=== PATIENT | female | born 1985 | race Caucasian/White ===

== ENCOUNTER 2023-10-23 16:31 | Inpatient (IN) | payer OTHER, SELFPAY ==
[2023-10-23] VITALS (27 sets, daily range): BP systolic 83–131; BP diastolic 52–86; BMI 33.1
[2023-10-23] MEDS: NSS 1000 IV ×3 (14:25→17:39)
[2023-10-23] MEDS: ADRENALIN 0.299999999999999989 MG IM (14:27)
[2023-10-23] MEDS: DUONEB 3 ML INH ×2 (14:30→19:27)
--- NOTE | 2023-10-23 14:35 | ED.GENMED ---
History of Present Illness
<Khang Silverio Jr., PA-C - Last Filed: 10/23/23 15:49>
General
Chief Complaint: Allergic Reaction
Source: patient and spouse
Exam Limitations: none
Time Seen by Provider: 10/23/23 14:22
Nursing documentation reviewed up to this point in time: agreed with
Travel History
Have you had any contact with someone who has COVID-19?: No
Do you have any symptoms of coronavirus? Fever > 100 degrees, chills, cough, shortness of breath, sore throat, loss of taste or smell, muscle aches, or headache?: No
History of Present Illness
History of Present Illness:
38-year-old female past medical history of asthma previous gastric bypass migraines presenting to the emergency department today with abrupt onset of diffuse itchy rash tongue swelling trouble swallowing wheezing and lightheadedness that occurred at
home after eating a meal that included shrimp and fruit. She took 2 doses of epinephrine prednisone, Benadryl and famotidine had ongoing symptoms for 10 minutes took a second dose of epinephrine and quickly came to the emergency department. She
claims that symptoms are ongoing here but slightly improved she has been able to tolerate by mouth. She claims that the wheezing has improved she did use a nebulizer as well.
Review of Systems
<Khang Silverio Jr., PA-C - Last Filed: 10/23/23 15:49>
Review of Systems
Allergies reviewed?: Yes
All Other Systems: ROS reviewed and negative except as documented in HPI and ROS
Phy Exam
<JOSE E Ferris Jr. Last Filed: 10/23/23 15:49>
Physical Exam
Physical Exam:
GENERAL: Alert , in no apparent distress
EYE: pupils equal and reactive
NECK: Supple, no significant adenopathy.
ENT: Swollen tongue posterior pharynx is patent uvula midline o/p clr, mmm.
CARDIAC: Regular rate and rhythm .
LUNGS: Clear breath sounds bilaterally, no acute respiratory distress, no wheezes/rales/rhonchi
ABDOMEN: Soft, without focal tenderness, no r/g, no cvat
NEUROLOGICAL: Alert and oriented, no focal neuro deficits
SKIN: Warm and dry, skin intact.
MUSCULOSKELETAL: No edema, well perfused.
PSYCH: Normal and appropriate interaction.
Course
<Khang Silverio Jr., PA-C - Last Filed: 10/23/23 15:49>
Orders/Labs/Results
Orders:
Orders
10/23/23 14:21
EPINEPHrine PF [Adrenalin] 1 mg .ROUTE .STK-MED ONE
10/23/23 14:23
0.9% Sodium Chloride 1000 ml [Nss] 1,000 ml IV BOLUS
Ipratropium/Albuterol Sulfate [Duoneb] 3 ml INH R NOW ONE
10/23/23 14:25
EPINEPHrine 4 mg/250 mL NSS [Adrenalin] 4 mg in 250 ml .ROUTE .STK-MED
10/23/23 14:27
EPINEPHrine PF [Adrenalin] 0.3 mg IM NOW STA
Ipratropium/Albuterol Sulfate [Duoneb] 3 ml .ROUTE .STK-MED ONE
10/23/23 14:30
EPINEPHrine 4 mg/250 mL NSS [Adrenalin] 4 mg in 250 ml IV PER PROTOCOL
Initial dose in mcg/min, then titrate:: 2
Titrate to keep:: Other
Titrate to keep other:: symptoms
Titrate by mcg/min:: 0.5-1 mcg/min
Frequency of titrations (minutes):: 5
Maximum dose in mcg/min:: 10
Begin to taper infusion when:: Remained at goal for 4hrs
Taper by mcg/min:: 0.5-1 mcg/min
Frequency of taper (minutes) if patient maintains goal:: 30
Taper to off?: Yes
If infusion off & no longer maintaining goal:: Contact Provider
10/23/23 15:05
Test Result ONCE
10/23/23 15:10
CBC/With Diff [Complete Blood Count/With Diff] Urgent
10/23/23 15:43
Comprehensive Metabolic Panel Urgent
HCG, Serum Qualitative Screen Urgent
10/23/23 16:08
Admit/Transfer Patient As Directed
Co-Sign Provider:
Level of Care: Inpatient admission
Assign to:: ICU
Physician / Group: wallace/hospitalist
Diagnosis: anaphylaxis shock
Reason for Hospitalization: anaphylaxis shock
Expected length of stay greater than two midnights?: Yes
ELOS- Estimated Length of Stay in days: 3
I certify the patient meets the requirements for IP care: Yes
10/23/23 16:10
Code Status As Directed
Resuscitation Status: Full Code
10/23/23 16:14
0.9% Sodium Chloride 1000 ml [Nss] 1,000 ml IV BOLUS
10/23/23 16:15
Level Vial Setter Consult Routine
Consulting Provider: Jose Gilbert
Was physician already notified: Yes
Reason for consult: anaphylaxis shock
10/23/23 16:23
CR Chest - 2 Views Routine
Comment:
Reason For Exam: sob. wheezing. +anaphylaxis
Abnormal Lab Results
10/23/23 10/23/23
15:10 15:43
Plt Count 657 H 10^3/uL
(130-400)
MPV 10.7 H fL
(7.4-10.4)
Absolute Lymphs (auto) 3.9 H 10^3/uL
(1.2-3.4)
Neutrophils % 32.0 L %
(42.2-75.2)
Lymphocytes % 61.6 H %
(20.5-51.1)
Glucose 104 H mg/dl
(70-99)
10/23/23 15:10
10/23/23 15:43
Vital Signs
Initial and Last Documented VS:
Initial Vital Signs
Temp Pulse Resp BP Pulse Ox
98.1 F 123 22 83/52 97
10/23/23 14:17 10/23/23 14:17 10/23/23 14:17 10/23/23 14:17 10/23/23 14:17
Last Documented Vital Signs
Temp Pulse Resp BP Pulse Ox
98.1 F 90 22 108/71 98
10/23/23 14:17 10/23/23 15:15 10/23/23 15:15 10/23/23 15:00 10/23/23 15:15
<Lamine Davies DO - Last Filed: 10/23/23 16:26>
Orders/Labs/Results
Orders:
Orders
10/23/23 14:21
EPINEPHrine PF [Adrenalin] 1 mg .ROUTE .STK-MED ONE
10/23/23 14:23
0.9% Sodium Chloride 1000 ml [Nss] 1,000 ml IV BOLUS
Ipratropium/Albuterol Sulfate [Duoneb] 3 ml INH R NOW ONE
10/23/23 14:25
EPINEPHrine 4 mg/250 mL NSS [Adrenalin] 4 mg in 250 ml .ROUTE .STK-MED
10/23/23 14:27
EPINEPHrine PF [Adrenalin] 0.3 mg IM NOW STA
Ipratropium/Albuterol Sulfate [Duoneb] 3 ml .ROUTE .STK-MED ONE
10/23/23 14:30
EPINEPHrine 4 mg/250 mL NSS [Adrenalin] 4 mg in 250 ml IV PER PROTOCOL
Initial dose in mcg/min, then titrate:: 2
Titrate to keep:: Other
Titrate to keep other:: symptoms
Titrate by mcg/min:: 0.5-1 mcg/min
Frequency of titrations (minutes):: 5
Maximum dose in mcg/min:: 10
Begin to taper infusion when:: Remained at goal for 4hrs
Taper by mcg/min:: 0.5-1 mcg/min
Frequency of taper (minutes) if patient maintains goal:: 30
Taper to off?: Yes
If infusion off & no longer maintaining goal:: Contact Provider
10/23/23 15:05
Test Result ONCE
10/23/23 15:10
CBC/With Diff [Complete Blood Count/With Diff] Urgent
10/23/23 15:43
Comprehensive Metabolic Panel Urgent
HCG, Serum Qualitative Screen Urgent
10/23/23 16:08
Admit/Transfer Patient As Directed
Co-Sign Provider:
Level of Care: Inpatient admission
Assign to:: ICU
Physician / Group: rivka/hospitalist
Diagnosis: anaphylaxis shock
Reason for Hospitalization: anaphylaxis shock
Expected length of stay greater than two midnights?: Yes
ELOS- Estimated Length of Stay in days: 3
I certify the patient meets the requirements for IP care: Yes
10/23/23 16:10
Code Status As Directed
Resuscitation Status: Full Code
10/23/23 16:14
0.9% Sodium Chloride 1000 ml [Nss] 1,000 ml IV BOLUS
10/23/23 16:15
Level Vial Setter Consult Routine
Consulting Provider: Jose Gilbert
Was physician already notified: Yes
Reason for consult: anaphylaxis shock
10/23/23 16:23
CR Chest - 2 Views Routine
Comment:
Reason For Exam: sob. wheezing. +anaphylaxis
Abnormal Lab Results
10/23/23 10/23/23
15:10 15:43
Plt Count 657 H 10^3/uL
(130-400)
MPV 10.7 H fL
(7.4-10.4)
Absolute Lymphs (auto) 3.9 H 10^3/uL
(1.2-3.4)
Neutrophils % 32.0 L %
(42.2-75.2)
Lymphocytes % 61.6 H %
(20.5-51.1)
Glucose 104 H mg/dl
(70-99)
10/23/23 15:10
10/23/23 15:43
Vital Signs
Initial and Last Documented VS:
Initial Vital Signs
Temp Pulse Resp BP Pulse Ox
98.1 F 123 22 83/52 97
10/23/23 14:17 10/23/23 14:17 10/23/23 14:17 10/23/23 14:17 10/23/23 14:17
Last Documented Vital Signs
Temp Pulse Resp BP Pulse Ox
98.1 F 90 22 108/71 98
10/23/23 14:17 10/23/23 15:15 10/23/23 15:15 10/23/23 15:00 10/23/23 15:15
<Khang Silverio Jr., PA-C - Last Filed: 10/23/23 15:49>
MDM/Problems Addressed
MDM/Problems Addressed:
38-year-old female presenting to the emergency department today with concerns of diffuse rash trouble swallowing wheezing lightheadedness after a meal half an hour prior to arrival. She is since taken to EpiPen doses, Benadryl prednisone and
Pepcid. She still has ongoing symptoms. Here her tongue is swollen but her posterior pharynx is open lungs with very slight expiratory wheeze initial blood pressure slightly low but in normal range after a dose of epinephrine here. Given second
dose of epinephrine here patient still with ongoing symptoms patient was started on epinephrine drip and had very slight and gradual improvement here. Blood pressure remaining in the low 100s systolic. Plan to admit for further monitoring
considering ongoing symptoms.
<Khang Silverio Jr., PA-C - Last Filed: 10/23/23 15:49>
*Critical Care Note
Total Time (30-74mins, 75-104mins- exclusive of procedures): Not Applicable
ED Attending Note
<Khang Silverio Jr., PA-C - Last Filed: 10/23/23 15:49>
-
Portions of this chart may have been created with voice recognition software.� Occasional wrong word or��sound alike� substitutions may have occurred due to the inherent limitations of voice recognition software.
<Lamine Davies DO - Last Filed: 10/23/23 16:26>
ED Attending Note
Patient seen and examined by attending physician: Yes
I performed the substantive portion of visit, reviewed & personally made and approve the management plan that is documented in note by myself or ANDER.: Yes
ED Attending Note:
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 Started a few minutes after eating fruit. Patient did had epinephrine self-administered prior to the emergency department patient is diffusely red and pruritic.
Patient feels her tongue is swollen and has difficulty swallowing and is wheezing. Patient was given epinephrine famotidine and Benadryl as well as steroids. Patient feeling better now. Patient is no longer wheezing. Voice is clear. Oropharynx
clear. Heart is regular. No cyanosis. Much less erythema of the skin. Anticipate observation and possible further epinephrine but anticipate the patient being able to be discharged.
Patient seem to worsen and requiring more epi. In light of this we will admit the patient.
Discharge Plan
Departure
Patient Disposition: Admit
Date of Disposition: 10/23/23
Time of Disposition: 15:49
Admit to: ICU
Admit to doctor: Rivka
Presentation/result/management discussed w/ accepting MD/DO: Hospitalist
Patient with high blood pressure during this ER visit?: No
Condition: Good
Covid-19: Not Applicable
Discharge Problem:
Anaphylaxis
Prescriptions:
No Action
metformin 500 mg tablet
1,000 mg PO BID@0800,1700
clonazepam 1 mg tablet
1 mg PO HSPRN PRN (Reason: anxiety/sleep)
Theragran Tablet
1 tab PO DAILY
bupropion HCl 100 mg tablet sustained-release 12 hr
200 mg PO DAILY
bupropion HCl 100 mg tablet sustained-release 12 hr
100 mg PO HS
Rx Instructions:
with the 75 mg dose
ondansetron 8 mg Tablet,Disintegrating
8 mg PO Q8HPRN PRN (Reason: nausea)
temazepam 30 mg capsule
30 mg PO HSPRN PRN (Reason: insomnia)
bupropion HCl 75 mg tablet
75 mg PO HS
Rx Instructions:
with 100 mg
aspirin 81 mg Tablet,Chewable
81 mg PO DAILY
albuterol sulfate 90 mcg/actuation Hfa Aerosol Inhaler
2 puff INHALATION Q6H PRN (Reason: shortness of breath)
atenolol 50 mg Tablet
50 mg PO BID
loratadine [Claritin] 10 mg Tablet
10 mg PO DAILY
vitamin B complex [B Complex] Capsule
1 cap PO DAILY
aripiprazole 10 mg tablet
10 mg PO DAILY
Wegovy 0.5 mg/0.5 mL pen injector
0.5 mg SC MO
epinephrine 0.3 mg/0.3 mL auto-injector
0.3 mg IM PRN PRN (Reason: anaphylaxis)
Referrals:
Nancie Abraham DO [Family Provider] -
Interventions
Interventions:
*Risk Screen - Suicide Last Done: 10/23/23 14:17
*General Assessment Last Done: 10/23/23 14:17
*Neglect/Abuse Screening Last Done: 10/23/23 14:17
ED- Fall Risk Assessment Last Done: 10/23/23 14:17
ED- Cardiac Assessment Last Done: 10/23/23 14:17
ED- Pulmonary Assessment Last Done: 10/23/23 14:17
ED-Skin Assessment Last Done: 10/23/23 14:17
Discharge Date and Time
Print Language: SWAZI
[2023-10-23] MEDS: ADRENALIN 250 IV (15:07)
[2023-10-23 15:20] LABS: % Basophils 0.2 % (0-2); % Eosinophils 0.9 % (0-6); % Immature Granulocytes 0.3 % (0-0.5); % Lymphocytes 61.6 % (20.5-51.1); Absolute Eosinophils 0.1 10^3/uL (0-0.7); Absolute Lymphocytes 3.9 10^3/uL (1.2-3.4); Absolute Monocytes 0.3 10^3/uL (0.1-0.6); Hematocrit 45.4 % (37.0-47.0); Hemoglobin 15.5 g/dL (12.0-16.0); Mean Corp Hgb Conc. 34.1 g/dL (33.0-37.0); Mean Corpuscular Hgb 30.5 pg (27.0-31.0); Mean Corpuscular Volume 89.2 fL (81.0-99.0); Mean Platelet Volume 10.7 fL (7.4-10.4); Nucleated Red Blood Cells % 0 %; Platelet Count 657 10^3/uL (130-400); Red Blood Cell Count 5.09 10^6/uL (4.20-5.40); Red Cell Dist. Width 13.2 % (11.5-14.5); White Blood Cell Count 6.4 10^3/uL (4.8-10.8)
[2023-10-23 16:05] LABS: HCG, Serum Qualitative Screen Negative
[2023-10-23 16:08] LABS: ALT (SGPT) 26 U/L (0-35); AST (SGOT) 25 U/L (14-36); Albumin 4.4 g/dl (3.5-5.0); Alkaline Phosphatase 77 U/L (38-126); Blood Urea Nitrogen 14 mg/dl (7-17); Calcium 9.9 mg/dl (8.4-10.2); Carbon Dioxide 24 mmol/L (22-30); Chloride 106 mmol/L (98-107); Glucose 104 mg/dl (70-99); Potassium 4.4 mmol/L (3.5-5.1); Sodium 140 mmol/L (135-145); Total Bilirubin 0.5 mg/dl (0.2-1.3); Total Protein 7.2 g/dl (6.3-8.2); eGFR > 60.00
--- NOTE | 2023-10-23 16:14 | HPS.HSE ---
Family Physician
-
Family Physician: Nancie Abraham
Chief Complaint
-
allergic reaction
History of Present Illness
38-year-old female past medical history as below who is presenting from home after eating shrimp and food. After eating patient noticed diffuse pruritic erythematous rash throughout the body. Also noticed trouble swallowing and irritation in the
throat. Also noted that she was wheezing and mild lightheadedness. Patient at home took epinephrine x 2, prednisone Benadryl and Pepcid. 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 Patient
received third dose of epinephrine in the ER and subsequently afterwards was started on epinephrine drip. Patient states her symptoms is slowly starting to improve. Rash has resolved. States some mild throat discomfort and epigastric discomfort.
Able to swallow okay so far. Not tachypneic. Denies chest pain or nausea or vomiting. Mild short of breath at times. States she has epi because she had anaphylactic shock last year after eating wheat in the soup and then she got allergy testing
and was found not to be allergic to multiple substances. However she was not tested for fruits.
Medical History
Past Medical History
Past Medical History: Reports Other
Additional Past Medical History:
Mood disorder
Sinus tachycardia
PCOS
Past Surgical History: Reports Other
Additional Past Surgical History:
Gastric bypass
Adenectomy
Social History
Tobacco: Non-smoker
Alcohol: Occasional
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
Family History
Family History: Not pertinent
Allergies / Home Medications
Allergies reflects when Allergies were last updated in [facility].
Home Medications with original date entered in [facility]
Allergy/Medication List:
Allergies
Allergy/AdvReac Type Severity Reaction Status Date / Time
rody Allergy Rash Verified 10/23/23 14:17
Penicillins Allergy Rash Verified 10/23/23 14:17
Sulfa (Sulfonamide Allergy Hives Verified 10/23/23 14:17
Antibiotics)
Home Medications
albuterol sulfate 90 mcg/actuation aerosol inhaler 2 puff inhalation Q6H PRN shortness of breath 10/23/23
aripiprazole 10 mg tablet 10 mg PO DAILY Neurological Condition 10/23/23
aspirin 81 mg chewable tablet 81 mg PO DAILY Blood Clot Prevention/Tx 10/23/23
atenolol 50 mg tablet 50 mg PO BID heart rate 10/23/23
bupropion HCl 100 mg tablet,12 hr sustained-release 100 mg PO HS Mental Health 10/23/23
bupropion HCl 100 mg tablet,12 hr sustained-release 200 mg PO DAILY Mental Health 10/23/23
bupropion HCl 75 mg tablet 75 mg PO Mental Health 10/23/23
clonazepam 1 mg tablet 1 mg PO HSPRN PRN anxiety/sleep 10/23/23
epinephrine 0.3 mg/0.3 mL injection, auto-injector 0.3 mg IM PRN PRN anaphylaxis 10/23/23
loratadine 10 mg tablet (Claritin) 10 mg PO DAILY Allergies 10/23/23
metformin 500 mg tablet 1,000 mg PO BID@0800,1700 PCOS 10/23/23
ondansetron 8 mg disintegrating tablet 8 mg PO Q8HPRN PRN nausea 10/23/23
semaglutide (weight loss) 0.5 mg/0.5 mL subcutaneous pen injector (Wegovy) 0.5 mg SC MO weight loss 10/23/23
temazepam 30 mg capsule 30 mg PO HSPRN PRN insomnia 10/23/23
therapeutic multivitamin 1 tab PO DAILY Supplement 10/23/23
vitamin B complex 1 cap PO DAILY Supplement 10/23/23
Review of Systems
-
History Source: Patient
A 12 point ROS was completed and negative except as noted: Yes
Physical Exam
Vital Signs
Vital Signs
Temp Pulse Resp BP Pulse Ox
98.1 F 90 22 108/71 98
10/23/23 14:17 10/23/23 15:15 10/23/23 15:15 10/23/23 15:00 10/23/23 15:15
Physical Exam
General: Well Developed, Well Nourished, No Apparent Distress and Other (Able to speak in complete sentences. Not tachypneic.)
HEENT: NormoCephalic, Moist mucous membranes, Atraumatic and Other (Negative for stridor)
Respiratory: Clear
Cardiac: S1/S2 and Regular Rhythm; No Murmur or Rub
GI: Soft, Non Tender, Non Distended and Normal Bowel Sounds; No Organomegaly
Rectal: Deferred by Provider
Musculoskeletal: No Clubbing, No Cyanosis and No Edema
Skin: No Rash
Neuro: Awake, AO x 3, No Motor Deficits and Nonfocal/grossly intact
Psych: Calm
Laboratory Results
-
10/23/23 15:10
10/23/23 15:43
Laboratory Results
Total Bilirubin 0.5 mg/dl (0.2-1.3) 10/23/23 15:43
AST 25 U/L (14-36) 10/23/23 15:43
ALT 26 U/L (0-35) 10/23/23 15:43
Alkaline Phosphatase 77 U/L (38-126) 10/23/23 15:43
Impression/Plan
-
#Anaphylactic shock secondary to fruits versus shrimp
Will bolus additional 1 L of normal saline
Status post epi injection x 3 and now on epinephrine drip
Will start patient on Solu-Medrol 40mg q8h
Start patient on Pepcid and Benadryl prn
Continue with Claritin
Start patient on bronchodilators standing and as needed
Monitor vital signs and oxygenation closely.
Low threshold for intubation. However seems to be improving significantly
Clears for now
Check chest xray
Natural Resources Specialist consulted
#Mood disorder
Continue with bupropion and Abilify
#PCOS
Hold metformin
#Sinus tachycardia
Hold beta-memo for now
#Thrombocytosis
Monitor for now
#Mild hyperglycemia
Check A1c in the morning
DVT prophylaxis Lovenox
Total Critical Care Time_ 40 minutes. I was immediately available to the patient and staff. I personally examined, reviewed labs, diagnostic images/reports, interpretations, treatment plans, discussed patient care with other providers and family
or caregivers (if patient is unable to make decisions), entered orders as appropriate and documented the medical record.
[2023-10-23] MEDS: SOLU-MEDROL PF 40 MG IV (17:44)
[2023-10-23] MEDS: TORADOL 15 MG IV (18:32)
[2023-10-23] MEDS: BENADRYL 25 MG IV (18:39)
--- NOTE | 2023-10-23 19:13 | PTCARENOTE ---
received pt from ED at 1730 , awake and oriented, pleasant, NSR on monitor , BP 117/68, on room air with sat of 98% , skin without hives or redness, uvula pink and midline , tonsils reddened without swelling , tolerated clear liquid diet , oob in
chair , voiding in bathroom , continues on epinephrine gtt at 2mcg
--- NOTE | 2023-10-23 19:16 | PTCARENOTE ---
pt co SI joint pain from laying on stretcher in the ED , chronic pain , pt gets injections under fluoroscopy , medicated with IV Toradol as requested
--- NOTE | 2023-10-23 19:25 | PTCARENOTE ---
Assumed care of Pt. AAOX3, cooperative. nsr on monitor. pox 95% on RA. epi gtt infusing at 2mcg/min. pt ambulated to bathroom without issues, steady gait. oriented to room. call chadwick within reach.
[2023-10-23] MEDS: PEPCID 20 MG IV (20:13)
[2023-10-23] MEDS: NSS (PRESERVATIVE FREE) 8 ML IV (20:13)
[2023-10-23] MEDS: WELLBUTRIN REGULAR RELEASE 75 MG PO (20:24)
[2023-10-23] MEDS: WELLBUTRIN SR (12 hour sustained release) 100 MG PO (20:24)
--- NOTE | 2023-10-23 20:43 | PTCARENOTE ---
Pt's map >65 continuously. Per protocol epi gtt infusion turned off. Farhad BOATENG notified. no issues.
--- NOTE | 2023-10-23 23:15 | PTCARENOTE ---
Pt aaox3, cooperative. Pt oob ambulating in hallway with this RN and . denies sob. HR: 80-90s, nsr. denies dizziness. Pt back to bed, at the bedside. no issues. call chadwick within reach.
[2023-10-24] VITALS (26 sets, daily range): BP systolic 82–152; BP diastolic 53–97; BMI 33.8
[2023-10-24] MEDS: NSS 1000 IV (00:11)
[2023-10-24] MEDS: KLONOPIN 1 MG PO (00:12)
[2023-10-24] MEDS: BENADRYL 25 MG IV ×3 (00:13→16:30)
[2023-10-24] MEDS: SOLU-MEDROL PF 40 MG IV (02:33)
[2023-10-24 04:49] LABS: % Immature Granulocytes 0.3 % (0-0.5); % Lymphocytes 6.7 % (20.5-51.1); % Monocytes 1.7 % (1.7-9.3); % Neutrophils 91.3 % (42.2-75.2); Absolute Lymphocytes 0.6 10^3/uL (1.2-3.4); Absolute Monocytes 0.2 10^3/uL (0.1-0.6); Absolute Neutrophils 8.5 10^3/uL (1.4-6.5); Hematocrit 32.6 % (37.0-47.0); Hemoglobin 11.2 g/dL (12.0-16.0); Mean Corp Hgb Conc. 34.4 g/dL (33.0-37.0); Mean Corpuscular Hgb 30.4 pg (27.0-31.0); Mean Corpuscular Volume 88.6 fL (81.0-99.0); Mean Platelet Volume 10.2 fL (7.4-10.4); Nucleated Red Blood Cells % 0 %; Platelet Count 336 10^3/uL (130-400); Red Blood Cell Count 3.68 10^6/uL (4.20-5.40); Red Cell Dist. Width 12.9 % (11.5-14.5); White Blood Cell Count 9.3 10^3/uL (4.8-10.8)
[2023-10-24 05:32] LABS: Blood Urea Nitrogen 10 mg/dl (7-17); Calcium 8.5 mg/dl (8.4-10.2); Carbon Dioxide 20 mmol/L (22-30); Chloride 111 mmol/L (98-107); Estimated Creatinine Clearance > 125 ml/min; Glucose 109 mg/dl (70-99); Magnesium 1.6 mg/dl (1.6-2.3); Phosphorus 3.6 mg/dl (2.5-4.5); Potassium 4.1 mmol/L (3.5-5.1); Sodium 137 mmol/L (135-145); eGFR > 60.00
[2023-10-24] MEDS: DUONEB 3 ML INH ×2 (07:29→17:05)
--- NOTE | 2023-10-24 08:00 | PTCARENOTE ---
Assumed care of patient at 0645. Assessment completed and documented in shift assessment.
Patient is AAOX4, pleasant and cooperative. Has been off Epi gtt since 2100 last night. No SOB, dyspnea, edema. Patient comfortable.
[2023-10-24] MEDS: NSS (PRESERVATIVE FREE) 8 ML IV ×2 (08:24→20:20)
[2023-10-24] MEDS: PEPCID 20 MG IV ×2 (08:24→20:21)
[2023-10-24] MEDS: CLARITIN 10 MG PO (08:24)
[2023-10-24] MEDS: LOW STRENGTH ASPIRIN 81 MG PO (08:24)
[2023-10-24] MEDS: WELLBUTRIN SR (12 hour sustained release) 200 MG PO (08:24)
[2023-10-24] MEDS: ABILIFY 10 MG PO (08:24)
--- NOTE | 2023-10-24 08:27 | CON.INTV ---
Consultation
Consultation Request
Date/Time Consultation Requested: 10/23/20231614
Date/Time Consultation Performed: 10/24/2023824
Requesting Provider: Dr. Tineo
Performing Provider: Dr. Gilbert
Reason for Consultation: Anaphylactic shock
Medical History
-
Chief Complaint: SOB/Tongue Swelling/Rash
History of Present Illness:
38-year-old female with a past medical history of asthma, rody allergy, migraines, history of TIA (23), PCOS and depression who presents with rash, SOB, with rapidly developing generalized body swelling and tongue swelling. Patient says that she
ate honeydew, strawberry/blueberry and had to shrimp about 5 minutes prior to her symptoms starting. She has never had a reaction like this before although she does have an rody allergy, and prior allergy testing to other allergens were negative.
She has never had any food allergy testing though. She is allergic to cat dander, dog dander and pollen. She was with her significant other when her symptoms began -she took 2 doses of epinephrine, Benadryl and famotidine but her symptoms
persisted/worsened. They then came here to the hospital for further evaluation. In triage she was tachycardic to 123 bpm, hypotensive to 83/52, afebrile to 98.1 �F and saturating 97% on room air. Labs showed increased platelet count of 67, 100
absolute eosinophil count, and otherwise noncontributory labs. CXR showed no acute cardiopulmonary process. She was given 0.3 mg epinephrine, DuoNebs and given her symptoms persisted she was started on epinephrine drip. Also given 1 L NS 0.9%.
Patient admitted to the ICU and critical care services consulted for further management/recommendations.
Patient seen and evaluated today at bedside. Epinephrine drip has been off since yesterday evening. Currently saturating 98% on room air, BP 152/88. She currently denies any rash, tongue swelling, difficulty swallowing her secretions, fevers or
chills. Significant other also at bedside. I answered all the patient and her partner's questions.
PMHx: Mood disorder/depression, sinus tachycardia, PCOS, history of rody allergy, history of migraines, history of TIA (2022), history of asthma
PSHx: Gastric bypass (sleeve), adenoidectomy
Past Medical History
Past Medical History: Other (Above as per HPI)
Past Surgical History: Other (Above as per HPI)
Social History
Tobacco: Non-smoker
Alcohol: Occasional
Drug: None
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
Family History
Family History: Reviewed & Not Pertinent
Allergies / Home Medications
Allergies
Allergy/AdvReac Type Severity Reaction Status Date / Time
rody Allergy Rash Verified 10/23/23 14:17
Penicillins Allergy Rash Verified 10/23/23 14:17
Sulfa (Sulfonamide Allergy Hives Verified 10/23/23 14:17
Antibiotics)
Home Medications
�Medication �Instructions �Recorded �Confirmed �Last Taken �Type
albuterol sulfate 90 mcg/actuation 2 puff inhalation Q6H PRN 10/23/23 10/23/23 Unknown History
aerosol inhaler shortness of breath
aripiprazole 10 mg tablet 10 mg PO DAILY Neurological 10/23/23 10/23/23 10/23/23 History
Condition
aspirin 81 mg chewable tablet 81 mg PO DAILY Blood Clot 10/23/23 10/23/23 10/23/23 History
Prevention/Tx
atenolol 50 mg tablet 50 mg PO BID heart rate 10/23/23 10/23/23 10/23/23 History
bupropion HCl 100 mg tablet,12 hr 100 mg PO Mental Health 10/23/23 10/23/23 10/22/23 History
sustained-release
bupropion HCl 100 mg tablet,12 hr 200 mg PO DAILY Mental Health 10/23/23 10/23/23 10/23/23 History
sustained-release
bupropion HCl 75 mg tablet 75 mg PO Mental Health 10/23/23 10/23/23 10/22/23 History
clonazepam 1 mg tablet 1 mg PO HSPRN PRN anxiety/sleep 10/23/23 10/23/23 Unknown History
epinephrine 0.3 mg/0.3 mL 0.3 mg IM PRN PRN anaphylaxis 10/23/23 10/23/23 10/23/23 History
injection, auto-injector
loratadine 10 mg tablet (Claritin) 10 mg PO DAILY Allergies 10/23/23 10/23/23 10/23/23 History
metformin 500 mg tablet 1,000 mg PO BID@0800,1700 PCOS 10/23/23 10/23/23 10/23/23 History
ondansetron 8 mg disintegrating 8 mg PO Q8HPRN PRN nausea 10/23/23 10/23/23 Unknown History
tablet
semaglutide (weight loss) 0.5 0.5 mg SC MO weight loss 10/23/23 10/23/23 10/23/23 06:00 History
mg/0.5 mL subcutaneous pen
injector (Wekathyvy)
temazepam 30 mg capsule 30 mg PO HSPRN PRN insomnia 10/23/23 10/23/23 Unknown History
therapeutic multivitamin 1 tab PO DAILY Supplement 10/23/23 10/23/23 10/23/23 History
vitamin B complex 1 cap PO DAILY Supplement 10/23/23 10/23/23 10/23/23 History
Review of Systems
-
History Source: Patient
All other systems: Negative unless noted
Vitals / Labs / Diagnostic Testing
Vital Signs
Temp Pulse Resp BP Pulse Ox
98.4 F 84 17 130/67 95
10/24/23 08:45 10/24/23 08:33 10/24/23 08:33 10/24/23 08:33 10/24/23 08:15
Lab Data
10/24/23 04:36
10/24/23 04:36
Diagnostic Testing:
Physical Exam
-
HEENT: Normocephalic, Anicteric and Other (Mallampati I)
Cardiovascular: S1/S2 and Peripheral Edema (Negative)
Respiratory: Wheeze (Negative), Rales (Negative), Rhonchi (Negative) and Non-Labored Respirations
GI: Soft, Non Distended, Non Tender and Normal Bowel Sounds
Neurology: Awake and Alert
Skin: Warm and Dry
General: Comfortable and Chills (Negative)
Assessment
-
Assessment: 38-year-old female with a past medical history of asthma, rody allergy, migraines, history of TIA (), PCOS and depression who presents with rash, SOB, with rapidly developing generalized body swelling and tongue swelling. Patient
says that she ate honeydew, strawberry/blueberry and had to shrimp about 5 minutes prior to her symptoms starting. She has never had a reaction like this before although she does have an rody allergy, and prior allergy testing to other allergens
were negative. She has never had any food allergy testing though. She is allergic to cat dander, dog dander and pollen. She was with her significant other when her symptoms began -she took 2 doses of epinephrine, Benadryl and famotidine but her
symptoms persisted/worsened. They then came here to the hospital for further evaluation. In triage she was tachycardic to 123 bpm, hypotensive to 83/52, afebrile to 98.1 �F and saturating 97% on room air. Labs showed increased platelet count of
67, 100 absolute eosinophil count, and otherwise noncontributory labs. CXR showed no acute cardiopulmonary process. She was given 0.3 mg epinephrine, DuoNebs and given her symptoms persisted she was started on epinephrine drip. Also given 1 L NS
0.9%. Patient admitted to the ICU and critical care services consulted for further management/recommendations.
Chronic conditions FOLLOW UP REP: Mood disorder/depression, sinus tachycardia, PCOS, history of rody allergy, history of migraines, history of TIA (2022), history of asthma
Impression:
#Anaphylactic shock likely due to unknown food allergy as she ate shellfish plus multiple different fruits 5 mins prior to symptoms developing
#Anemia
#History of asthma
#History of TIA (2022)
Plan:
- Epinephrine drip was weaned off last night
- Continue to monitor in ICU as her Sx recurred later this afternoon, prompting us to administer 0.5mg epi x1, and she may need epi gtt again
- Continue q12hr pepcid + prn benadryl
- Wean down steroids to prednisone 40mg daily and wean by 10mg every 4th day until off
- Check tryptase level
- Maintain SpO2 >90-94%
- If SOB develops then she may need to be intubated for airway protection depending on the severity of angioedema
- Maintain MAP>65
- Replete electrolytes with K>4, Mg>2
- Maintain euglycemia with goal BG 140-180
- prn nebulized bronchodilators
- Incentive spirometer
- DVT ppx
Continue ICU level care given her recurrent rash concerning for re-developing anaphylaxis and need for airway watch; possibly need for epinephrine drip.
Critical care statement: A total of 40 minutes of critical care time was provided for this patient today. This includes management of unstable vital signs, evaluation of the patient at bedside, reviewing the patient's pertinent medical records
including radiographs, microbiology, laboratory evaluations, and discussion with primary team, consultants, pharmacy, nutrition, physical therapy, case management, charge nurse, critical care nursing, and respiratory therapy.
Data:
CXR 10-23-2023: No acute cardiopulmonary process.
[2023-10-24 09:00] LABS: Glycohemoglobin (HgbA1c) 5.1 % (4.0-5.6)
--- NOTE | 2023-10-24 09:49 | W.PN.HOSP.TC ---
Today's Communication/Plan
-
Reduce steroids to p.o.
Watch another day in the hospital with lowered dose of steroids
Assessment / Plan
Assessment / Plan
38-year-old female presented from home after eating 2 shrimps, 2 strawberries, 2 blueberries 10 minutes later developed pruritic rash throughout the body and half an hour later also difficulty swallowing and irritation of the throat. She also had
some wheezing and lightheadedness. She took epinephrine, prednisone Benadryl and Pepcid at home. She took a second dose of epinephrine and came to the ER. She received another dose of epinephrine in the ER and started on an epinephrine drip. She
has an appointment coming up with interstate planner on the -Dr. Isabel
CVS: S1-S2 normal
Chest: CTA B/L
Abdomen: Soft, NT / Bowel sounds present
Extremities: No edema, normal pulses
Skin no rash
# Allergic reaction/anaphylaxis-Unclear shrimp versus foods
Off Epinephrine drip since last night
[id number]-[id number] be changed to prednisone
Pepcid and Benadryl and Claritin
Outpatient allergy testing
# Mood disorder-continue aripiprazole, bupropion, clonazepam, temazepam
# Chronic tachycardia on atenolol 50 mg twice daily
# PCOS-Metformin
# Obesity with BMI 33
History of gastric sleeve then bypass surgery
Wegovy also now
# Migraines- rarely gets now
# History of 2 episodes of TIAs one in 2022
# Asthma-prn nebs
# Factor V deficiency
# Back pain-requesting Toradol which works for her better-ordered
# GI prophylaxis ordered because of patient being on steroids, and states even though not p.o. Discussed with patient and agreeable -history of gastric bypass,
# DVT prophylaxis-Lovenox
# Full code
D/W ICU team at bedside paper making machine operator and RN and pharmacist
Discussed with family at bedside
Cc time 31 min
Anticipated Discharge: Within 24 hours
Subjective/Interval History
-
Date of Service: October 24, 2023
Objective Data
-
Labs:
Laboratory Results
10/24/23
04:36
WBC 9.3
Hgb 11.2 L D
Hct 32.6 L
Plt Count 336 D
Sodium 137
Potassium 4.1
Chloride 111 H
Carbon Dioxide 20 L
BUN 10
Creatinine 0.4 L
Glucose 109 H
Calcium 8.5
Vital Signs:
Vital Signs
Temp Pulse Resp BP Pulse Ox
98.4 F 84 17 130/67 95
10/24/23 08:45 10/24/23 08:33 10/24/23 08:33 10/24/23 08:33 10/24/23 08:15
I&O
10/23/23 10/24/23 10/25/23
06:59 06:59 06:59
Intake Total 2235.0 / 2360.0 125 / 125
Output Total 1650 / 1650 450 / 450
Balance 585.0 / 710.0 -325 / -325
[2023-10-24] MEDS: NSS IV (10:55)
[2023-10-24] MEDS: SOLU-MEDROL PF IV (11:04)
--- NOTE | 2023-10-24 12:00 | PTCARENOTE ---
Unchanged from prior assessment. Patient doing well, downgraded to telemetry and awaiting a bed assignment on the floors.
--- NOTE | 2023-10-24 12:09 | CM ---
CM following re: discharge planning.
Reviewed pt's chart, met with pt and pt's at bedside.
Pt is a 38 year old female, admitted with primary dx of Allergic reaction/anaphylaxis.
Pt reports she lives with in a 2SH, 2 steps to enter, has 13 year old daughter. 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
PCP: Nancie Abraham
Pharmacy: [facility]
D/c plan: home with no needs. to transport at [facility].
CM will follow with discharge needs updates as needed.
[2023-10-24] MEDS: DELTASONE 50 MG PO ×2 (13:02→17:44)
[2023-10-24] MEDS: TENORMIN 50 MG PO ×2 (13:02→20:22)
[2023-10-24] MEDS: TORADOL 10 MG IV ×2 (13:03→19:06)
[2023-10-24] MEDS: ADRENALIN 0.5 MG IM (16:48)
--- NOTE | 2023-10-24 16:55 | PTCARENOTE ---
Patient developed localized rash to LUE at approximately 14:15. PRN Benadryl given.
At 16:15, patient still with rash to LUE that has spread to RUE and neck. Patient's cheeks flushed, neck red (from scratching). Additional 25mg IV Benadryl given.
At 16:45 patient with no resolution of symptoms and progressive itchiness and redness to neck and face. STAT IM Epi given.
[2023-10-24] MEDS: GLUCOPHAGE 1000 MG PO (17:44)
[2023-10-24] MEDS: LOVENOX 40 MG SC (17:46)
[2023-10-24] MEDS: MAGNESIUM OXIDE 500 MG PO (17:46)
--- NOTE | 2023-10-24 20:45 | PTCARENOTE ---
Rec'd care of patient at 1900. Patient alert and oriented. Independent in room. VSS. Pulse ox 95-96% on RA. Lung sounds cta. NSR on tele monitor. Rash resolved on b/l arms and neck. Small spot on right cheek remains. Patient requesting an increase
in Toradol dose. WALL WORKER notified and Toradol increased to 15mg IV Q6. No other complaints.
[2023-10-24] MEDS: RESTORIL 30 MG PO (22:01)
[2023-10-24] MEDS: WELLBUTRIN SR (12 hour sustained release) 100 MG PO (22:01)
[2023-10-24] MEDS: WELLBUTRIN REGULAR RELEASE 75 MG PO (22:01)
[2023-10-24] MEDS: ProAIR HFA INHALER 2 PUFF INH (22:16)
[2023-10-25] VITALS (12 sets, daily range): BP systolic 106–151; BP diastolic 57–98
--- NOTE | 2023-10-25 00:43 | PTCARENOTE ---
Patient resting comfortably. Respirations even, unlabored. VSS. Pulse ox 96% on RA. NSR, HR in the 80's.
[2023-10-25] MEDS: KLONOPIN 1 MG PO (01:40)
[2023-10-25] MEDS: TORADOL 15 MG IV (01:41)
--- NOTE | 2023-10-25 03:09 | PTCARENOTE ---
No changes. AM labs sent. VSS. Patient having difficulty sleeping. PRN medications administered as ordered.
[2023-10-25 04:01] LABS: Blood Urea Nitrogen 16 mg/dl (7-17); Calcium 9.7 mg/dl (8.4-10.2); Carbon Dioxide 23 mmol/L (22-30); Chloride 108 mmol/L (98-107); Estimated Creatinine Clearance > 125 ml/min; Glucose 110 mg/dl (70-99); Potassium 4.5 mmol/L (3.5-5.1); Sodium 140 mmol/L (135-145); eGFR > 60.00
[2023-10-25] MEDS: BENADRYL 25 MG IV (04:05)
[2023-10-25] MEDS: PEPCID 20 MG IV (07:42)
[2023-10-25] MEDS: CLARITIN 10 MG PO (07:43)
[2023-10-25] MEDS: NSS (PRESERVATIVE FREE) 8 ML IV (07:43)
[2023-10-25] MEDS: PROTONIX 40 MG PO (07:43)
[2023-10-25] MEDS: MAGNESIUM OXIDE 500 MG PO (07:43)
[2023-10-25] MEDS: GLUCOPHAGE 1000 MG PO (07:43)
[2023-10-25] MEDS: LOW STRENGTH ASPIRIN 81 MG PO (07:43)
[2023-10-25] MEDS: TENORMIN 50 MG PO (07:44)
[2023-10-25] MEDS: WELLBUTRIN SR (12 hour sustained release) 200 MG PO (07:44)
[2023-10-25] MEDS: DELTASONE 40 MG PO (07:44)
[2023-10-25] MEDS: ABILIFY 10 MG PO (07:44)
--- NOTE | 2023-10-25 08:18 | PTCARENOTE ---
recd family bedside, reviewed plan of care, questions about possible DC today. See MAR for med interventions, mild rash remains R lower face/jaw, no urticaria/tingling/pain, reports no increase. assessment as documented. oob, tolerating well,
verbalizing will report any onset or change in sensations.
--- NOTE | 2023-10-25 08:30 | PTCARENOTE ---
allergy list confirmed, see additions, discussed with patient.
--- NOTE | 2023-10-25 09:03 | W.PN.INTV ---
Today's Communication / Plan
Recommendations
Up OOB
Monitor for recurrent rash or Sx of anaphylaxis, however unlikely given how far out we are from her initial symptoms developing
Pt stable for DC home with prednisone taper, epi pen refilled, and she will follow-up with her global account manager. Considering she has a history of asthma I will also make any arrangements to see her in the office with me for full PFTs and adjustment of
inhalers if needed.
Patient being prepared to be discharged home. Button Broacher/Pulmonary service will now sign off. Please reconsult if there are any additional questions/concerns, or if patient's respiratory status deteriorates.
Assessment
-
Assessment: 38-year-old female with a past medical history of asthma, rody allergy, migraines, history of TIA (23), PCOS and depression who presents with rash, SOB, with rapidly developing generalized body swelling and tongue swelling. Patient
says that she ate honeydew, strawberry/blueberry and had to shrimp about 5 minutes prior to her symptoms starting. She has never had a reaction like this before although she does have an rody allergy, and prior allergy testing to other allergens
were negative. She has never had any food allergy testing though. She is allergic to cat dander, dog dander and pollen. She was with her significant other when her symptoms began -she took 2 doses of epinephrine, Benadryl and famotidine but her
symptoms persisted/worsened. They then came here to the hospital for further evaluation. In triage she was tachycardic to 123 bpm, hypotensive to 83/52, afebrile to 98.1 �F and saturating 97% on room air. Labs showed increased platelet count of
67, 100 absolute eosinophil count, and otherwise noncontributory labs. CXR showed no acute cardiopulmonary process. She was given 0.3 mg epinephrine, DuoNebs and given her symptoms persisted she was started on epinephrine drip. Also given 1 L NS
0.9%. Patient admitted to the ICU and critical care services consulted for further management/recommendations.
Chronic conditions DOCUMENTATION SPECIALIST: Mood disorder/depression, sinus tachycardia, PCOS, history of rody allergy, history of migraines, history of TIA (2022), history of asthma
Impression:
#Anaphylactic shock likely due to unknown food allergy as she ate shellfish plus multiple different fruits 5 mins prior to symptoms developing - now resolved
#Anemia
#History of asthma
#History of TIA (2022)
Plan:
- Epinephrine drip was weaned off 2 nights ago
- She remained in the ICU yesterday evening after her Sx recurred later in the afternoon, prompting us to administer 0.5mg epi x1, and she may need epi gtt again --> she never needed it again since admission
- Continue q12hr pepcid + prn benadryl
- Wean down steroids to prednisone 40mg daily and wean by 10mg every 4th day until off
- Check tryptase level - pending
- Maintain SpO2 >90-94%
- Maintain MAP>65
- Replete electrolytes with K>4, Mg>2
- Maintain euglycemia with goal BG 140-180
- prn nebulized bronchodilators
- Incentive spirometer
- DVT ppx
Pt stable for DC home with prednisone taper and she will follow-up with her global account manager. Considering she has a history of asthma I will also make any arrangements to see her in the office with me for full PFTs and adjustment of inhalers if needed.
Patient being prepared to be discharged home. Button Broacher/Pulmonary service will now sign off. Thank you for allowing us to be involved in the care of this patient. Please reconsult if there are any additional questions/concerns, or if patient's
respiratory status deteriorates.
Total time spent today was 40 minutes for this encounter. Time includes reviewing laboratory test/imaging results, reviewing pertinent medical records, obtaining and reviewing medical history, performing an appropriate exam, ordering medications,
tests and procedures. Time also includes documentation of this encounter, coordinating patient care and communicating with other healthcare professionals. Total time does not include separately billed tests performed on this date of service.
Data:
CXR 10-23-2023: No acute cardiopulmonary process.
Subjective Dataa
Subjective Data
Date of Service:
Date of Service: October 25, 2023
Chief Complaint: Button Broacher Follow Up
Subjective:
Patient seen and evaluated today at bedside. She is saturating 100% on room air, BP 128/86 and heart rate 59. Had a rash on her body yesterday evening with concern for worsening progression to anaphylactic shock but she never required to go back
on the epinephrine drip. Doing well today with small residual rash seen on her right cheek. No new or worsening rash this AM. She denies shortness of breath, headache, chest pain, fevers or chills.
Review of Systems
General: Other (Negative unless mentioned above)
Objective Data
Data Reviewed
Vital Signs / I&O / Oxygen:
Vital Signs
Temp Pulse Resp BP Pulse Ox
97.7 F 74 14 119/79 100
10/25/23 07:32 10/25/23 08:15 10/25/23 06:47 10/25/23 07:44 10/25/23 08:00
Intake and Output
10/24/23 10/25/23 10/26/23
06:59 06:59 06:59
Intake Total 2235.0 / 2360.0 125 / 125 240 / 240
Output Total 1650 / 1650 450 / 450
Balance 585.0 / 710.0 -325 / -325 240 / 240
SaO2 100
Physical Exam
General: Respiratory Distress (Negative) and Comfortable
HEENT: Normocephalic and Anicteric
Cardiovascular: S1-S2 and Peripheral Edema (Negative)
Respiratory: Wheeze (Negative), Crackles (Negative), Rhonchi (Negative) and Non-Labored Respirations
GI: Soft, Non Distended, Non Tender and Normal Bowel Sounds
Neurology: AO x 3 and Tremors (Negative)
Skin: Warm, Dry and Other (Erythematous circular rash seen on her right cheek without any urticarial lesions seen)
Labs/Micro/Reports
Lab Data
10/24/23 04:36
10/25/23 03:07
--- NOTE | 2023-10-25 09:53 | PN.CDI ---
Addendum entered and electronically signed by Sara Orantes MD 10/25/23 18:39:
Documentation is complete at this time.
Original Note:
CDI
- -
CDI:
Physician Documentation Request
Admit Date: 10/23/23 16:31
Dear Doctor Lamberto,
Please review the following and provide your response in the progress notes.
Clinical Indicators:
# 10/22 admitted anaphylaxis shock fruits vs. shrimp
# Factor V deficiency
Laboratory Tests
10/23/23 10/24/23
15:10 04:36
RBC 5.09 3.68 L
Hgb 15.5 11.2 L D
Hct 45.4 32.6 L
Based on the above and your clinical assessment, please clarify in the progress notes, the appropriate diagnosis, if significant, that supports the above abnormalities and additional evaluation, monitoring and/or treatment rendered:
Precipitous drop in hematocrit
Other(please specify)
Use of terms such as suspected, likely, concern for, or probable (associated with a specific diagnosis that is being evaluated, monitored, or treated as if it exists) are acceptable and can be coded in the inpatient setting, when documented at the
time of discharge.
Thank you,
Marisabel Yeboah RN BSN CCDS
CDI Specialist
please contact via tiger text
Please use your independent medical judgment in providing your response.
--- NOTE | 2023-10-25 11:30 | W.PN.HOSP.TC ---
Today's Communication/Plan
-
Discharge
Will discharge on EpiPen
Assessment / Plan
Assessment / Plan
38-year-old female presented from home after eating 2 shrimps, 2 strawberries, 2 blueberries 10 minutes later developed pruritic rash throughout the body and half an hour later also difficulty swallowing and irritation of the throat. She also had
some wheezing and lightheadedness. She took epinephrine, prednisone Benadryl and Pepcid at home. She took a second dose of epinephrine and came to the ER. She received another dose of epinephrine in the ER and started on an epinephrine drip. She
has an appointment coming up with shower room attendant on the -Dr. Isabel
Throat no edema noted
CVS: S1-S2 normal
Chest: CTA B/L
Abdomen: Soft, NT / Bowel sounds present
Extremities: No edema, normal pulses
Skin right side of face rash , (from itching. per pt). No other skin rashes noted
# Allergic reaction/anaphylaxis-Unclear shrimp versus fruits
She had more rash on evening of 10/24/2023. Which has resolved since then.
Off Epinephrine drip since evening of 10/23/23
Prednisone taper
Pepcid and Benadryl and Claritin
Outpatient allergy testing
She has an appt with Dr. Isabel
# Mood disorder-continue aripiprazole, bupropion, clonazepam, temazepam
# Chronic tachycardia on atenolol 50 mg twice daily
# PCOS-Metformin
# Obesity with BMI 33
History of gastric sleeve then bypass surgery
Wegovy also now
# Migraines- rarely gets now
# History of 2 episodes of TIAs one in 2022
# Asthma-prn nebs
# Factor V deficiency
# Back pain-requesting Toradol which works for her better-ordered
# GI prophylaxis ordered because of patient being on steroids, and states even though not p.o. Discussed with patient and agreeable -history of gastric bypass,
# DVT prophylaxis-Lovenox
# Full code
D/W ICU team at bedside hot header operator and RN and pharmacist
Discussed with family at bedside
Patient feels much better and wants to go home
Discharge coordination time 32 minutes
Anticipated Discharge: Today
Subjective/Interval History
-
Date of Service: October 25, 2023
Objective Data
-
Labs:
Laboratory Results
10/25/23
03:07
Sodium 140
Potassium 4.5
Chloride 108 H
Carbon Dioxide 23
BUN 16
Creatinine 0.5 L
Glucose 110 H
Calcium 9.7
Vital Signs:
Vital Signs
Temp Pulse Resp BP Pulse Ox
97.7 F 59 14 128/86 100
10/25/23 07:32 10/25/23 09:45 10/25/23 06:47 10/25/23 08:56 10/25/23 08:00
I&O
10/24/23 10/25/23 10/26/23
06:59 06:59 06:59
Intake Total 2235.0 / 2360.0 125 / 125 240 / 240
Output Total 1650 / 1650 450 / 450
Balance 585.0 / 710.0 -325 / -325 240 / 240
--- NOTE | 2023-10-25 11:45 | W.DS.TRANS ---
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
-
Discharge Instructions:
Discharge Diagnosis/Procedures Allergic reaction/anaphylaxis, will disorder,
PCOS, history of TIA, asthma, factor V
deficiency, chronic back pain
Diet As tolerated
Additional Diets Avoid suspected allergens and food until you
follow-up with Dr. Isabel-gunnery/ordnance officer
Activity As tolerated
Driving Restrictions As prior to admission
Instructions:
Stand-Alone Forms:
Changes to Home Medications: Yes
Discharge Medications:
DC Medications w/original date entered in [employer]
aripiprazole 10 mg tablet 10 mg PO DAILY Neurological Condition 10/23/23
aspirin 81 mg chewable tablet 81 mg PO DAILY Blood Clot Prevention/Tx 10/23/23
atenolol 50 mg tablet 50 mg PO BID heart rate 10/23/23
bupropion HCl 100 mg tablet,12 hr sustained-release 100 mg PO HS Mental Health 10/23/23
bupropion HCl 100 mg tablet,12 hr sustained-release 200 mg PO DAILY Mental Health 10/23/23
bupropion HCl 75 mg tablet 75 mg PO Mental Health 10/23/23
clonazepam 1 mg tablet 1 mg PO HSPRN PRN anxiety/sleep 10/23/23
loratadine 10 mg tablet (Claritin) 10 mg PO DAILY Allergies 10/23/23
metformin 500 mg tablet 1,000 mg PO BID@0800,1700 PCOS 10/23/23
ondansetron 8 mg disintegrating tablet 8 mg PO Q8HPRN PRN nausea 10/23/23
semaglutide (weight loss) 0.5 mg/0.5 mL subcutaneous pen injector (Wegovy) 0.5 mg SC MO weight loss 10/23/23
temazepam 30 mg capsule 30 mg PO HSPRN PRN insomnia 10/23/23
therapeutic multivitamin 1 tab PO DAILY Supplement 10/23/23
vitamin B complex 1 cap PO DAILY Supplement 10/23/23
albuterol sulfate 90 mcg/actuation aerosol inhaler 2 puff inhalation R Q6HPRN PRN shortness of breath #1 g 10/25/23
diphenhydramine HCl 25 mg capsule (Allergy (diphenhydramine)) 25 mg PO TID PRN allergic reaction #30 caps 10/25/23
epinephrine 1 mg/mL injection kit 1 mg IM ONCE anaphylaxis #1 ea 10/25/23
famotidine 20 mg tablet (Pepcid) 20 mg PO BID Allergies #30 tabs 10/25/23
magnesium oxide 500 mg PO DAILY Electrolyte Repletion #0 tabs 10/25/23
pantoprazole 40 mg tablet,delayed release 40 mg PO DAILY #0 tabs 10/25/23
prednisone 10 mg tablet See Rx Instructions .Route .COMPLEX Allergies #24 tabs 10/25/23
Home Medication Changes
new
Pending Results: Yes
Additional Pending Results:
Tryptase level pending
--- NOTE | 2023-10-25 11:47 | W.DS.TRANS ---
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
-
Discharge Instructions:
Discharge Diagnosis/Procedures Allergic reaction/anaphylaxis, will disorder,
PCOS, history of TIA, asthma, factor V
deficiency, chronic back pain
Diet As tolerated
Additional Diets Avoid suspected allergens and food until you
follow-up with Dr. Isabel-director underwriter sales
Activity As tolerated
Driving Restrictions As prior to admission
Instructions:
Stand-Alone Forms:
Changes to Home Medications: Yes
Discharge Medications:
DC Medications w/original date entered in [facility]
aripiprazole 10 mg tablet 10 mg PO DAILY Neurological Condition 10/23/23
aspirin 81 mg chewable tablet 81 mg PO DAILY Blood Clot Prevention/Tx 10/23/23
atenolol 50 mg tablet 50 mg PO BID heart rate 10/23/23
bupropion HCl 100 mg tablet,12 hr sustained-release 100 mg PO HS Mental Health 10/23/23
bupropion HCl 100 mg tablet,12 hr sustained-release 200 mg PO DAILY Mental Health 10/23/23
bupropion HCl 75 mg tablet 75 mg PO Mental Health 10/23/23
clonazepam 1 mg tablet 1 mg PO HSPRN PRN anxiety/sleep 10/23/23
loratadine 10 mg tablet (Claritin) 10 mg PO DAILY Allergies 10/23/23
metformin 500 mg tablet 1,000 mg PO BID@0800,1700 PCOS 10/23/23
ondansetron 8 mg disintegrating tablet 8 mg PO Q8HPRN PRN nausea 10/23/23
semaglutide (weight loss) 0.5 mg/0.5 mL subcutaneous pen injector (Wegovy) 0.5 mg SC MO weight loss 10/23/23
temazepam 30 mg capsule 30 mg PO HSPRN PRN insomnia 10/23/23
therapeutic multivitamin 1 tab PO DAILY Supplement 10/23/23
vitamin B complex 1 cap PO DAILY Supplement 10/23/23
albuterol sulfate 90 mcg/actuation aerosol inhaler 2 puff inhalation R Q6HPRN PRN shortness of breath #1 g 10/25/23
diphenhydramine HCl 25 mg capsule (Allergy (diphenhydramine)) 25 mg PO TID PRN allergic reaction #30 caps 10/25/23
epinephrine 1 mg/mL injection kit 1 mg IM ONCE anaphylaxis #1 ea 10/25/23
famotidine 20 mg tablet (Pepcid) 20 mg PO BID Allergies #30 tabs 10/25/23
magnesium oxide 500 mg PO DAILY Electrolyte Repletion #0 tabs 10/25/23
prednisone 10 mg tablet See Rx Instructions .Route .COMPLEX Allergies #24 tabs 10/25/23
Home Medication Changes
new
diphenhydramine HCl 25 mg capsule (Allergy (diphenhydramine)) 25 mg PO TID PRN allergic reaction #30 caps 10/25/23
epinephrine 1 mg/mL injection kit 1 mg IM ONCE anaphylaxis #1 ea 10/25/23
famotidine 20 mg tablet (Pepcid) 20 mg PO BID Allergies #30 tabs 10/25/23
magnesium oxide 500 mg PO DAILY Electrolyte Repletion #0 tabs 10/25/23
prednisone 10 mg tablet See Rx Instructions .Route .COMPLEX Allergies #24 tabs 10/25/23
Pending Results: Yes
Additional Pending Results:
Tryptase level pending
--- NOTE | 2023-10-25 11:56 | W.DS.TRANS ---
Addendum entered and electronically signed by Sara Orantes MD 10/25/23 18:28:
Dictation- [id number]
Original Note:
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
-
Discharge Instructions:
Discharge Diagnosis/Procedures Allergic reaction/anaphylaxis, will disorder,
PCOS, history of TIA, asthma, factor V
deficiency, chronic back pain
Diet As tolerated
Additional Diets Avoid suspected allergens and food until you
follow-up with Dr. Isabel-kiln labourer
Activity As tolerated
Driving Restrictions As prior to admission
Instructions:
Stand-Alone Forms:
Changes to Home Medications: Yes
Discharge Medications:
DC Medications w/original date entered in [employer]
aripiprazole 10 mg tablet 10 mg PO DAILY Neurological Condition 10/23/23
aspirin 81 mg chewable tablet 81 mg PO DAILY Blood Clot Prevention/Tx 10/23/23
atenolol 50 mg tablet 50 mg PO BID heart rate 10/23/23
bupropion HCl 100 mg tablet,12 hr sustained-release 100 mg PO HS Mental Health 10/23/23
bupropion HCl 100 mg tablet,12 hr sustained-release 200 mg PO DAILY Mental Health 10/23/23
bupropion HCl 75 mg tablet 75 mg PO HS Mental Health 10/23/23
clonazepam 1 mg tablet 1 mg PO HSPRN PRN anxiety/sleep 10/23/23
loratadine 10 mg tablet (Claritin) 10 mg PO DAILY Allergies 10/23/23
metformin 500 mg tablet 1,000 mg PO BID@0800,1700 PCOS 10/23/23
ondansetron 8 mg disintegrating tablet 8 mg PO Q8HPRN PRN nausea 10/23/23
semaglutide (weight loss) 0.5 mg/0.5 mL subcutaneous pen injector (Wegovy) 0.5 mg SC MO weight loss 10/23/23
temazepam 30 mg capsule 30 mg PO HSPRN PRN insomnia 10/23/23
therapeutic multivitamin 1 tab PO DAILY Supplement 10/23/23
vitamin B complex 1 cap PO DAILY Supplement 10/23/23
albuterol sulfate 90 mcg/actuation aerosol inhaler 2 puff inhalation R Q6HPRN PRN shortness of breath #1 g 10/25/23
diphenhydramine HCl 25 mg capsule (Allergy (diphenhydramine)) 25 mg PO TID PRN allergic reaction #30 caps 10/25/23
epinephrine 0.3 mg/0.3 mL injection, auto-injector 0.3 mg (0.3 mL) IM Q5-15M PRN anaphylaxis #2 ea 10/25/23
famotidine 20 mg tablet (Pepcid) 20 mg PO BID Allergies #30 tabs 10/25/23
magnesium oxide 500 mg PO DAILY Electrolyte Repletion #0 tabs 10/25/23
prednisone 10 mg tablet See Rx Instructions .Route .COMPLEX Allergies #24 tabs 10/25/23
Home Medication Changes
new
amotidine 20 mg tablet (Pepcid) 20 mg PO BID Allergies #30 tabs 10/25/23
magnesium oxide 500 mg PO DAILY Electrolyte Repletion #0 tabs 10/25/23
prednisone 10 mg tablet See Rx Instructions .Route .COMPLEX Allergies #24 tabs 10/25/23
diphenhydramine HCl 25 mg capsule (Allergy (diphenhydramine)) 25 mg PO TID PRN allergic reaction #30 caps 10/25/23
Pending Results: Yes
Additional Pending Results:
Tryptase
--- NOTE | 2023-10-25 12:04 | CM ---
CM following re: discharge planning.
Reviewed pt's chart, met with pt and pt's at bedside.
Discharge order noted. Both pt and her are aware, expressed their agreement with discharge.
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
D/C plan: home no needs. to transport.
--- NOTE | 2023-10-25 12:37 | PTCARENOTE ---
discharged to home via . paperwork reviewed, questions answered, no c/o. ate lunch.
== END 2023-10-25 12:46 | disposition home or self-care (01) | DRG 916 ==
LOC: ICU 16:31
PROVIDERS: Nurse Practitioner Primary Care; Physician Assistant; ADMITTING PHYSICIAN Hospitalist; ATTENDING PHYSICIAN Hospitalist; CONSULT PHYSICIAN Internal Medicine Critical Care Medicine; EMERGENCY PHYSICIAN Emergency Medicine; FAMILY PHYSICIAN Internal Medicine
PROC: 3E033XZ Introduction of Vasopressor into Peripheral Vein, Percutaneous Approach (ICD-10-PCS; 2023-10-23)
DX: T78.04XA Anaphylactic reaction due to fruits and vegetables, initial encounter (principal); D68.2 Hereditary deficiency of other clotting factors; T78.02XA Anaphylactic reaction due to shellfish (crustaceans), initial encounter; J45.909 Unspecified asthma, uncomplicated; R21 Rash and other nonspecific skin eruption; R42 Dizziness and giddiness; G43.909 Migraine, unspecified, not intractable, without status migrainosus; L53.9 Erythematous condition, unspecified; R00.0 Tachycardia, unspecified; D75.839 Thrombocytosis, unspecified; R73.9 Hyperglycemia, unspecified; R13.10 Dysphagia, unspecified; F32.A Depression, unspecified; D64.9 Anemia, unspecified; M54.9 Dorsalgia, unspecified; E66.9 Obesity, unspecified; E28.2 Polycystic ovarian syndrome; Z98.84 Bariatric surgery status; Z79.84 Long term (current) use of oral hypoglycemic drugs; Z79.82 Long term (current) use of aspirin; Z79.85 Long-term (current) use of injectable non-insulin antidiabetic drugs; Z88.0 Allergy status to penicillin; Z88.2 Allergy status to sulfonamides; Z91.018 Allergy to other foods; Z86.73 Personal history of transient ischemic attack (TIA), and cerebral infarction without residual deficits; Z68.33 Body mass index [BMI] 33.0-33.9, adult
CPT/HCPCS: 71045; 80048; 80053; 83036; 83520; 83735; 84100; 84703; 85025; 93005; 94640; 96361; 96372; 96374; 99285

== ENCOUNTER 2025-04-04 16:44 | Emergency (ER) | payer OTHER, SELFPAY ==
[2025-04-04] VITALS (7 sets, daily range): BP systolic 110–131; BP diastolic 69–91; BMI 22.9
[2025-04-04 17:05] LABS: Hematocrit 41.1 % (37.0-47.0); Hemoglobin 13.9 g/dL (12.0-16.0); Mean Corp Hgb Conc. 33.8 g/dL (33.0-37.0); Mean Corpuscular Volume 90.5 fL (81.0-99.0); Nucleated Red Blood Cells % 0 %; Platelet Count 451 10^3/uL (130-400); Red Cell Dist. Width 12.5 % (11.5-14.5)
[2025-04-04 17:31] LABS: HCG, Serum Qualitative Screen Negative
[2025-04-04 17:32] LABS: ALT (SGPT) 24 U/L (0-35); AST (SGOT) 23 U/L (14-36); Albumin 4.9 g/dl (3.5-5.0); Alkaline Phosphatase 74 U/L (38-126); Blood Urea Nitrogen 10 mg/dl (7-17); Calcium 9.9 mg/dl (8.4-10.2); Carbon Dioxide 24 mmol/L (22-30); Chloride 109 mmol/L (98-107); Glucose 71 mg/dl (70-99); Lipase 267 U/L (23-300); Potassium 4.2 mmol/L (3.5-5.1); Sodium 143 mmol/L (135-145); Total Protein 7.4 g/dl (6.3-8.2); eGFR > 60.00
--- NOTE | 2025-04-04 18:31 | ED.GENMED ---
History of Present Illness
<Bessy Bauer PA-C - Last Filed: 04/05/25 01:03>
General
Chief Complaint: Abdominal Symptoms
Source: patient
Exam Limitations: none
Time Seen by Provider: 04/04/25 18:17
Nursing documentation reviewed up to this point in time: agreed with
History of Present Illness
History of Present Illness:
Patient is a 40-year-old female with history of factor V Leiden, Gildardo-en-Y gastric bypass in 2020 who presents to the emergency department w/ upper abdominal pain and vomiting. Patient reports gradual onset of upper abdominal pain and intractable
vomiting earlier this afternoon, approximately 2 hours prior to arrival in ED. She describes some radiation of pain into her back. She states that she had a very small bowel movement earlier this morning however since onset of symptoms has been
unable to pass gas. She denies any fever. No chest pain or shortness of breath. No dysuria.
Patient states she had a sleeve gastrectomy performed in 2014. She then had a Gildardo-en-Y gastric bypass conversion in 2020 at [facility].
She is not of any known sick contacts. No history of similar symptoms
Review of Systems
<Bessy Bauer PA-C - Last Filed: 04/05/25 01:03>
Review of Systems
Allergies reviewed?: Yes
All Other Systems: ROS reviewed and negative except as documented in HPI and ROS
Phy Exam
<Bessy Bauer PA-C - Last Filed: 04/05/25 01:03>
Physical Exam
Physical Exam:
Vitals: Patient's vital signs are stable. Afebrile
General: Patient is pale and uncomfortable appearing, repetitive retching on exam
Skin: Warm and dry, no rashes or lesions
Head: Normocephalic, atraumatic
Eyes: Sclera nonicteric.
Throat: Protecting airway
Neck: Normal ROM, no cervical spine tenderness, no meningismus
Cardiac: Regular rate and rhythm, no murmurs.
Pulm: Normal respiratory effort. Lungs clear bilaterally
Abdomen: Abdomen soft. Reproducible tenderness in epigastric region. No rebound or guarding.
Extremities: No evidence of cyanosis or edema
Neuro: AAOx3. Grossly intact.
Psychiatric: Normal affect.
Course
<Bessy Bauer PA-C - Last Filed: 04/05/25 01:03>
Orders/Labs/Results
Orders:
Orders
04/04/25 16:50
Test Result ONCE
04/04/25 16:57
Complete Blood Count/With Diff Urgent
Comprehensive Metabolic Panel Urgent
HCG, Serum Qualitative Screen Urgent
Comment: Notify provider if positive test present
Lipase Urgent
04/04/25 18:29
HYDROmorphone [Dilaudid] 0.5 mg IV NOW STA
Iohexol [Omnipaque] See Protocol PO NOW STA
Ondansetron Injectable [Zofran] 4 mg IV NOW STA
Obstruct Series W/PA Chest [CR Obstruct Series W/pa Chest] Urgent
Comment:
Reason For Exam: upper abdominal pain, vomiting
04/04/25 18:31
Electrocardiogram (*1) Urgent
Reason for Study: Abdominal Pain
EKG- Treatment ONCE
0.9% Sodium Chloride 1000 ml [Nss] 1,000 ml IV BOLUS
04/04/25 18:45
Lactic Acid Q4H
Comment: CANCEL 2nd LACTIC ACID IF 1st LACTIC ACID IS LESS THAN 2
04/04/25 19:56
CT Abd/pelvis W Iv Cont Urgent
Comment:
Reason For Exam: Upper abdominal pain
04/04/25 20:43
0.9% Sodium Chloride 1000 ml [Nss] 1,000 ml IV BOLUS
04/04/25 22:30
Lactic Acid Q4H
Comment: CANCEL 2nd LACTIC ACID IF 1st LACTIC ACID IS LESS THAN 2
04/04/25 23:37
HYDROmorphone [Dilaudid] 0.5 mg IV NOW STA
Ondansetron Injectable [Zofran] 4 mg IV NOW STA
Abnormal Lab Results
04/04/25 04/04/25
16:57 18:45
Plt Count 451 H 10^3/uL
(130-400)
MPV 11.2 H fL
(7.4-10.4)
Absolute Monos (auto) 0.7 H 10^3/uL
(0.1-0.6)
Chloride 109 H mmol/L
(98-107)
Lactic Acid 2.1 H mmol/L
(0.7-2.0)
04/04/25 16:57
04/04/25 16:57
Vital Signs
Initial and Last Documented VS:
Initial Vital Signs
Temp Resp
97.5 F 22
04/04/25 16:47 04/04/25 16:47
Last Documented Vital Signs
Temp Pulse Resp BP Pulse Ox
97.5 F 74 18 115/79 98
04/04/25 16:47 04/04/25 18:56 04/04/25 18:56 04/04/25 22:00 04/04/25 22:15
<Grayson Auguste, DO - Last Filed: 04/04/25 18:41>
Orders/Labs/Results
Orders:
Orders
04/04/25 16:50
Test Result ONCE
04/04/25 16:57
Complete Blood Count/With Diff Urgent
Comprehensive Metabolic Panel Urgent
HCG, Serum Qualitative Screen Urgent
Comment: Notify provider if positive test present
Lipase Urgent
04/04/25 18:29
HYDROmorphone [Dilaudid] 0.5 mg IV NOW STA
Iohexol [Omnipaque] See Protocol PO NOW STA
Ondansetron Injectable [Zofran] 4 mg IV NOW STA
Obstruct Series W/PA Chest [CR Obstruct Series W/pa Chest] Urgent
Comment:
Reason For Exam: upper abdominal pain, vomiting
04/04/25 18:31
Electrocardiogram (*1) Urgent
Reason for Study: Abdominal Pain
EKG- Treatment ONCE
0.9% Sodium Chloride 1000 ml [Nss] 1,000 ml IV BOLUS
04/04/25 18:45
Lactic Acid Q4H
Comment: CANCEL 2nd LACTIC ACID IF 1st LACTIC ACID IS LESS THAN 2
04/04/25 19:56
CT Abd/pelvis W Iv Cont Urgent
Comment:
Reason For Exam: Upper abdominal pain
04/04/25 20:43
0.9% Sodium Chloride 1000 ml [Nss] 1,000 ml IV BOLUS
04/04/25 22:30
Lactic Acid Q4H
Comment: CANCEL 2nd LACTIC ACID IF 1st LACTIC ACID IS LESS THAN 2
04/04/25 23:37
HYDROmorphone [Dilaudid] 0.5 mg IV NOW STA
Ondansetron Injectable [Zofran] 4 mg IV NOW STA
Abnormal Lab Results
04/04/25 04/04/25
16:57 18:45
Plt Count 451 H 10^3/uL
(130-400)
MPV 11.2 H fL
(7.4-10.4)
Absolute Monos (auto) 0.7 H 10^3/uL
(0.1-0.6)
Chloride 109 H mmol/L
(98-107)
Lactic Acid 2.1 H mmol/L
(0.7-2.0)
04/04/25 16:57
04/04/25 16:57
Vital Signs
Initial and Last Documented VS:
Initial Vital Signs
Temp Resp
97.5 F 22
04/04/25 16:47 04/04/25 16:47
Last Documented Vital Signs
Temp Pulse Resp BP Pulse Ox
97.5 F 74 18 115/79 98
04/04/25 16:47 04/04/25 18:56 04/04/25 18:56 04/04/25 22:00 04/04/25 22:15
<Bessy Bauer PA-C - Last Filed: 04/05/25 01:03>
MDM/Problems Addressed
Differential Diagnosis Includes:
Not limited to: Small bowel obstruction, internal hernia, pancreatitis, cholecystitis, gastritis, etc.
MDM/Problems Addressed:
40-year-old female with history as documented presenting with upper abdominal pain associated with intractable vomiting and inability to pass flatus. This started earlier today. History of Gildardo-en-Y gastric bypass. No fever, chest pain or
shortness of breath. No urinary symptoms. Vitals as above. On exam, patient appears pale, actively vomiting, and uncomfortable appearing. Abdomen soft with diffuse tenderness mainly in upper abdomen. No rebound or guarding. Cardio/pulmonary
assessment unremarkable.
Clinical picture consistent with possible small bowel obstruction especially with history of abdominal surgeries as above. Possible internal hernia. Other considerations would be pancreatitis, biliary etiology, gastritis, etc. Will check basic
labs, lactic. Would ideally like to obtain CT scan with p.o. contrast given history of gastric bypass surgery however patient unable to tolerate at this time. Will start with obstruction series and obtain CT following. Very low suspicion for
cardiac etiology however will screen with EKG. Will give IV fluids, IV pain medication and antiemetic
Update: Labs reviewed CBC and chemistry without clinically significant abnormalities. Lactic acid of 2.1. Obstruction series x-ray reviewed by myself and attending which reveal dilated small bowel with air-fluid levels. In light of presenting
symptoms�is to be concerning for small bowel obstruction. Her symptoms have improved by this time. She is still unable to tolerate oral contrast however will obtain scan with IV contrast only. Given concern for small bowel obstruction with
history of gastric bypass surgery, will contact [facility] bariatric surgery as she would likely require transfer.
Update: CT abdomen shows distention of small bowel without any definitive transition point however findings do seem consistent with a small bowel obstruction. I did discuss with bariatric surgeon, Dr Steiner at [facility] who accepts patient
for transfer tonight. She is no longer vomiting and her pain is well-controlled. With history of gastric bypass will avoid NG tube at this time. Disposition pending bed availability at [facility]. Discussed all of this with patient who is
agreeable and comfortable with plan.
Update: Patient did receive a inpatient bed at [facility] for transportation tonight. Patient in stable condition.
Chronic conditions affecting care:
History of Gildardo-en-Y gastric bypass
Acute Exacerbation and/or Progression of Chronic Illness:
Suspected small bowel obstruction
<Bessy Bauer PA-C - Last Filed: 04/05/25 01:03>
*Radiology
Radiology exam reviewed: preliminary read by ED provider (Obstruction series x-ray reviewed by wv-dilated small bowel with air-fluid levels consistent with small bowel obstruction) and radiology read reviewed
*Pulse Oximetry
SaO2: 100
Oxygen Mode of Delivery: Room air
Patient hypoxic: no
*EKG
Interpreted by ED Provider?: Yes
EKG Intrepretation Date: 04/05/27
Interpretation: normal
Comparison EKG: no changes
Heart Rate: 82
Rate: normal
Rhythm: sinus
[place]: normal axis
Interval: normal QT interval
QRS Pattern: normal QRS
Ischemia: no ischemia
*Literacy Specialist Interpretation
Rate: normal
Interpretation: normal
Heart Rate: 72
Rhythm: sinus
*Critical Care Note
Total Time (30-74mins, 75-104mins- exclusive of procedures): Not Applicable
<Bessy Bauer PA-C - Last Filed: 04/05/25 01:03>
Patient Management
Discussion with other providers: Storage Battery Inspector (Case discussed with bariatric surgeon at [facility], Dr. Steiner)
ED Attending Note
<Bessy Bauer PA-C - Last Filed: 04/05/25 01:03>
-
Portions of this chart may have been created with voice recognition software.� Occasional wrong word or��sound alike� substitutions may have occurred due to the inherent limitations of voice recognition software.
<Grayson Auguste DO - Last Filed: 04/04/25 18:41>
ED Attending Note
Patient seen and examined by attending physician: Yes
I performed the substantive portion of visit, reviewed & personally made and approve the management plan that is documented in note by myself or ANDER.: Yes
ED Attending Note:
I have seen and evaluated the patient with a [id number] encounter. I have spoken to the advance practicer provider and involved in the medical history, the physical exam, medical decision making.
Evaluation and management service: agree unless noted differently below.
Results interpretation: agree unless noted differently below.
Focused HPI: 40-year-old female presenting with abdominal pain, nausea and vomiting. Patient states she is having trouble passing gas. Patient states she has a history of gastric bypass and [facility]
Physical exam: Uncomfortable, mild generalized abdominal tenderness. Pale. Hyperventilating
Medical Decision Making: Given the prior history of bypass, will possible small bowel obstruction versus internal hernia. Patient given IV pain medicine. Will start with obstruction series. Patient will ultimately require admission and possible
transfer if this is gastric bypass related
Discharge Plan
Departure
Patient Disposition: Acute Care Hospital
Date of Disposition: 04/04/25
Time of Disposition: 20:37
Discharge Problem:
SBO (small bowel obstruction), History of Gildardo-en-Y gastric bypass
Prescriptions:
No Action
metformin 500 mg tablet
1,000 mg PO BID@0800,1700
clonazepam 1 mg tablet
1 mg PO HSPRN PRN (Reason: anxiety/sleep)
therapeutic multivitamin Tablet
1 tab PO DAILY
bupropion HCl 100 mg tablet sustained-release 12 hr
200 mg PO DAILY
bupropion HCl 100 mg tablet sustained-release 12 hr
100 mg PO HS
Rx Instructions:
with the 75 mg dose
ondansetron 8 mg Tablet,Disintegrating
8 mg PO Q8HPRN PRN (Reason: nausea)
temazepam 30 mg capsule
30 mg PO HSPRN PRN (Reason: insomnia)
bupropion HCl 75 mg tablet
75 mg PO HS
Rx Instructions:
with 100 mg
aspirin 81 mg Tablet,Chewable
81 mg PO DAILY
atenolol 50 mg Tablet
50 mg PO BID
loratadine [Claritin] 10 mg Tablet
10 mg PO DAILY
vitamin B complex Capsule
1 cap PO DAILY
aripiprazole 10 mg tablet
10 mg PO DAILY
Wegovy 0.5 mg/0.5 mL pen injector
0.5 mg SC MO
magnesium oxide 500 mg magnesium Tablet
500 mg PO DAILY Qty: 0 0RF
albuterol sulfate 90 mcg/actuation Hfa Aerosol Inhaler
2 puff inhalation R Q6HPRN PRN (Reason: shortness of breath) Qty: 1 0RF
prednisone 10 mg Tablet
See Rx Instructions .ROUTE .COMPLEX Qty: 24 0RF
Rx Instructions:
PO
40 mg daily x2 days, 30 mg daily x3 days,
20 mg daily x2 days, 10 mg daily x2 days.
diphenhydramine HCl [Allergy (diphenhydramine)] 25 mg capsule
25 mg PO TID PRN (Reason: allergic reaction) Qty: 30 0RF
famotidine [Pepcid] 20 mg tablet
20 mg PO BID Qty: 30 0RF
epinephrine 0.3 mg/0.3 mL auto-injector
0.3 mg IM Q5-15M PRN (Reason: anaphylaxis) Qty: 2 1RF
Referrals:
Nancie Abraham DO [Family Provider, Internal Medicine]
Hospital Transfer
Other hospital: [facility]
I certify that the patient requires transfer: Yes
Discussed case with accepting physician: Dr. Steiner
Reason for transfer: specialties available
Interventions
Interventions:
*Risk Screen - Suicide Last Done: 04/04/25 18:57
*General Assessment Last Done: 04/04/25 18:57
*Neglect/Abuse Screening Last Done: 04/04/25 18:57
MX-[id number] Assessment Last Done: 04/04/25 18:57
Discharge Date and Time
Print Language: ARMENIAN
[2025-04-04] MEDS: ZOFRAN 4 MG IV ×2 (18:35→23:41)
[2025-04-04] MEDS: DILAUDID 0.5 MG IV ×2 (18:35→23:41)
[2025-04-04] MEDS: NSS 1000 IV ×2 (18:35→21:13)
[2025-04-05] VITALS: BP 97/59
== END 2025-04-05 01:36 | disposition short-term general hospital (02) ==
LOC: EMR 16:44
PROVIDERS: Physician Assistant; EMERGENCY PHYSICIAN Student in an Organized Health Care Education/Training Program; FAMILY PHYSICIAN Internal Medicine
DX: K56.609 Unspecified intestinal obstruction, unspecified as to partial versus complete obstruction (principal); Z98.84 Bariatric surgery status; D68.51 Activated protein C resistance
CPT/HCPCS: 99285; 96374; 96375; 96376 ×2; 96361 ×2; 74022; 74177; 80053; 83605; 83690; 84703; 85025; 93005; Q9967